=== PATIENT | male | born 1955 | race Caucasian/White ===

== ENCOUNTER 2018-01-13 08:59 | Day surgery (SDC) | payer BC ==
[~2018-01-13] VITALS: Ht 188 cm; Wt 107.0 kg
[~2018-01-13 08:59] MED LIST: ELIQUIS5 MG PO
== END 2018-01-13 23:02 | disposition home or self-care (01) ==
LOC: ORSCMMR 08:59
PROVIDERS: Internal Medicine Gastroenterology
PROC: 0DBM8ZX Excision of Descending Colon, Via Natural or Artificial Opening Endoscopic, Diagnostic (ICD-10-PCS; principal; 2018-01-13 10:00)
PROC: 0DBK8ZX Excision of Ascending Colon, Via Natural or Artificial Opening Endoscopic, Diagnostic (ICD-10-PCS; principal; 2018-01-13 10:00)
DX: Z12.11 Encounter for screening for malignant neoplasm of colon (principal); D12.2 Benign neoplasm of ascending colon; D12.4 Benign neoplasm of descending colon; K57.30 Diverticulosis of large intestine without perforation or abscess without bleeding; D68.51 Activated protein C resistance; Z86.718 Personal history of other venous thrombosis and embolism; G47.33 Obstructive sleep apnea (adult) (pediatric); Z87.891 Personal history of nicotine dependence; Z79.01 Long term (current) use of anticoagulants
CPT/HCPCS: 88305; J2250; J3010; J7120

== ENCOUNTER → 2020-08-23 | Outpatient (CLI) | payer SELFPAY | LOC: LAB 14:49 → LAB SHORT 14:49 | DX: L08.9 Local infection of the skin and subcutaneous tissue, unspecified (principal); Z48.817 Encounter for surgical aftercare following surgery on the skin and subcutaneous tissue | CPT/HCPCS: 87070; 87077; 87186; 87205 ==

== ENCOUNTER 2023-09-09 07:26 | Day surgery (SDC) | payer MEDICARE ==
[~2023-09-09] VITALS: Ht 187 cm; Wt 111.5 kg
[~2023-09-09 07:26] MED LIST changes: +Crestor20 MG PO; +LOSA25 PO; +METF500 PO; +TAMS.4ER PO; +TOUJEO MAX300 UNIT/2 SC
[2023-09-09 07:53] VITALS: BP 155/88
--- NOTE | 2023-09-09 08:21 | NUR ---
Ambulatory in Day Surgery. Patient states colon prep results clear. History, Chart, Medications and Allergies reviewed before start of procedure. Patient confirms NPO status and agrees with scheduled surgery. Patient States Post-Procedure ride home has been arranged. Pre-Op teaching done. Pt verbalizes understanding.
--- NOTE | 2023-09-09 08:36 | NUR ---
09/09/23 [address] LEAVITT'S ANESTHESIA RECORD
[2023-09-09 08:56] VITALS: BP 142/70
[2023-09-09 08:58] VITALS: BP 137/75
[2023-09-09 09:01] VITALS: BP 133/72
--- NOTE | 2023-09-09 09:04 | NUR ---
REPORT RECEIVED FROM DAVID RAMEY RN. VSS. PT ABLE TO REPOSITION SELF IN BED. PT REQUESTING PO FLUIDS AND TOLERATING THEM WELL. PT DENIES PAIN, NAUSEA OR OTHER DISCOMFORTS. PT SITTING UP CHATTING.
[2023-09-09 09:15] VITALS: BP 131/78
--- NOTE | 2023-09-09 09:28 | NUR ---
Patient up to Ambulate independently. Gait steady. VSS AND CONSISTENT WITH PT BASELINE. Discharge instructions reviewed with patient. Patient verbalizes understanding. Copy given to patient to take home. Patient States Post-Procedure ride home has been arranged. Discharged via wheelchair to private car for ride home. PT BELONGINGS RETURNED TO PT.
== END 2023-09-09 09:30 | disposition home or self-care (01) ==
LOC: ORSCMMR 07:26 → ORD 09:00 → ORSCMMR 09:00
PROVIDERS: Internal Medicine Gastroenterology
PROC: 0DBM8ZX Excision of Descending Colon, Via Natural or Artificial Opening Endoscopic, Diagnostic (ICD-10-PCS; principal; 2023-09-09 09:00)
DX: Z12.11 Encounter for screening for malignant neoplasm of colon (principal); Z86.010 Personal history of colon polyps; D12.4 Benign neoplasm of descending colon; E11.9 Type 2 diabetes mellitus without complications; I10 Essential (primary) hypertension; E78.00 Pure hypercholesterolemia, unspecified; G47.33 Obstructive sleep apnea (adult) (pediatric); G47.30 Sleep apnea, unspecified; Z86.718 Personal history of other venous thrombosis and embolism; Z87.891 Personal history of nicotine dependence; Z79.85 Long-term (current) use of injectable non-insulin antidiabetic drugs; Z79.01 Long term (current) use of anticoagulants; Z79.84 Long term (current) use of oral hypoglycemic drugs; Z79.899 Other long term (current) drug therapy
CPT/HCPCS: 82947; 88305; J2704; J7120